=== PATIENT | female | born 1960 | race African-American/Black ===

== ENCOUNTER 2016-12-07 15:19 | Emergency (ER) | payer OTHER ==
[~2016-12-07] VITALS: Ht 165.1 cm; Wt 84.2 kg
[~2016-12-07 15:19] MED LIST: GABA300C3 PO
[2016-12-07 15:27] VITALS: BP 131/72; PULSE 65; RESP 16; TEMP 98.4; O2SAT 100
[2016-12-07] MEDS ORDERED: CHOL1CAP6 (16:23)
[2016-12-07] MEDS ORDERED: AMIT8CAP6 PO (16:23)
[2016-12-07] MEDS ORDERED: IRON18TA (16:23)
[2016-12-07] MEDS ORDERED: GABA800T PO (16:23)
[2016-12-07] MEDS ORDERED: BACI500O9 TOPICAL (16:51)
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
== END 2016-12-07 17:01 | disposition home or self-care (01) ==
LOC: PHED 15:19 → PHEFT 17:01
DX: T20.17XA Burn of first degree of neck, initial encounter (principal); X19.XXXA Contact with other heat and hot substances, initial encounter; Y93.89 Activity, other specified; Y92.9 Unspecified place or not applicable
CPT/HCPCS: 99283